=== PATIENT | male | born 1995 | race Hispanic/Latino ===

== ENCOUNTER 2018-02-10 00:05 | Emergency (ER) | payer OTHER ==
[2018-02-10 00:18] VITALS: BP 111/76
--- NOTE | 2018-02-10 01:31 | ED SKIN/ALLERGY COMPLAINT ---
History of Present Illness General Chief Complaint: Laceration Procedure Stated Complaint: LAC ABOVE LEFT EYEBROW AFTER FALL Source: patient Exam Limitations: HISTORY OF MENTAL RETARDATION Vital Signs & Intake/Output Vital Signs & Intake/Output ED Intake and Output 02/11 0000 02/10 1200 Intake Total Output Total Balance Patient 240 lb Weight Weight Estimated Measurement Method Allergies Coded Allergies: No Known Drug Allergies (NKDA 02/10/18) Reconcile Medications No Known Home Medications Triage Note: PT BROUGHT TO ED BY SKILLED NURSING STAFF FOR LACERATION ABOVE LEFT EYE S/P MECHANICAL FALL AT 2300 THISS EVENING. 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 UNSURE OF TETANUS Triage Nurses Notes Reviewed? yes HPI: Patient presents for evaluation of a left forehead laceration that occurred prior to arrival secondary to a mechanical fall. Patient hit his forehead on a dresser. There was no apparent loss of consciousness and the patient has been acting normally since. Past History Travel History Traveled to [facility] past 21 day No Medical History Any Pertinent Medical History? 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 No Review of Systems Review of Systems Constitutional: Reports: no symptoms. EENTM: Reports: no symptoms. Respiratory: Reports: no symptoms. Cardiovascular: Reports: no symptoms. GI: Reports: no symptoms. Genitourinary: Reports: no symptoms. Musculoskeletal: Reports: no symptoms. Skin: Reports: see HPI. Neurological/Psychological: Reports: no symptoms. Hematologic/Endocrine: Reports: no symptoms. Immunologic/Allergic: Reports: no symptoms. All Other Systems: Reviewed and Negative Physical Exam Physical Exam General Appearance: SEE BELOW Comments: Gen.: Well-nourished, well-developed, no acute respiratory distress. Head: Normocephalic Face: Non-gaping full-thickness laceration inferolateral to the left eyebrow Eyes: Normal inspection bilaterally Ears: Normal inspection bilaterally Nose: Normal inspection Throat/mouth : Moist mucosa Neck: Supple, full range of motion, no goiter Lungs: Quiet respirations Back: Normal range of motion Extremities: Normal range of motion grossly, no cyanosis clubbing or edema of the upper extremities Neurologic: Cranial nerves grossly intact, speech is clear Skin: warm and dry Psychiatric: Calm, cooperative, no apparent delusions or hallucinations Progress Differential Diagnosis: laceration, head trauma, C-spine trauma, concussion Plan of Care: see d/c instructions Comments: Wound closed with skin glue. Patient tolerated procedure well. Departure Departure Disposition: HOME OR SELF CARE Condition: Stable Clinical Impression Primary Impression: Forehead laceration Qualifiers: Encounter type: initial encounter Qualified Code: S01.81XA - Laceration without foreign body of other part of head, initial encounter Referrals: Unknown (PCP/Family) Additional Instructions: Do not place anything on the wound. The wound has been closed with skin glue and this will slough off naturally. Avoid direct cleaning to the wound as this might decompose the glue. Follow-up with your primary care physician in 48-72 hours to reassess wound for possible infection. Return if any concerns or sudden worsening. Thank you for choosing the [facility] for your care. It was a pleasure to serve you today. Kennedy Martinez M.D. [facility] Departure Forms: Customer Survey General Discharge Information Prescriptions: Current Visit Scripts No Known Home Medications
== END 2018-02-10 01:38 ==
LOC: ERH 00:05
DX: S01.81XA Laceration without foreign body of other part of head, initial encounter (principal); W22.03XA Walked into furniture, initial encounter
CPT/HCPCS: J2001